=== PATIENT | male | born 1985 ===

== ENCOUNTER 2023-12-03 11:22 | Emergency (ER) | payer OTHER, SELFPAY ==
[2023-12-03 11:28] VITALS: BP 117/64; PULSE 91; RESP 20; TEMP 36.7; O2SAT 98
--- NOTE | 2023-12-03 12:02 | ED.URI ---
HPI - URI/Sore Throat General Chief Complaint: Upper Respiratory Infection Stated Complaint: upper respiratory Time Seen by Provider: 12/03/23 11:55 Source: patient and RN notes reviewed Mode of arrival: ambulatory Limitations: no limitations History of Present Illness HPI Narrative: Patient presents today with a 2 week history of productive cough that has been worsening since onset, rhinorrhea, nasal congestion. Denies fever, sore throat, shortness of breath. He has tried no medication for symptoms prior to arrival. No history of asthma or COPD. Smokes half pack per day. Related Data Home Medications Medication Instructions Recorded Confirmed quetiapine 100 mg tablet mg 12/03/23 Allergies Allergy/AdvReac Type Severity Reaction Status Date / Time NSAIDS (Non-Steroidal Allergy Rash Verified 12/03/23 12:02 Anti-Inflamma Review of Systems Review of Systems: CONSTITUTIONAL: Denies body aches, fever, chills, or sweats. EYES: Denies visual changes, redness, or discharge. ENT: Denies sore throat, or otalgia.+ rhinorrhea, congestion CARDIOVASCULAR: Denies chest pain, palpitations, or edema. RESPIRATORY: Denies dyspnea.+ cough GASTROINTESTINAL: Denies abdominal pain, nausea, vomiting, or diarrhea. GENITOURINARY: Denies dysuria or hematuria. SKIN: Denies rash, itching, or wounds. MUSCULOSKELETAL: Denies back pain, joint pain, or myalgia. NEUROLOGIC: Denies headache, numbness, tingling, or weakness. PSYCH: Denies depression or anxiety. PMFSH Comments At time of signature, I have reviewed and agree with nursing past medical, surgical, social and family history unless otherwise noted. Please see nursing chart for further information. There is no relevant family history pertinent to the presenting complaint Exam Narrative: GENERAL: Well-appearing, well-nourished, and in no acute distress. HEAD: Normocephalic, atraumatic. EYES: EOMI. No redness or drainage. Conjunctivae normal. ENT: Mucous membranes pink and moist. Nares clear. No rhinorrhea. TMs normal bilaterally. Throat normal. Uvula midline. NECK: Normal AROM. Supple. No lymphadenopathy. CHEST: No respiratory distress. Clear to auscultation. HEART: Regular rate and rhythm. No murmur appreciated. EXTREMITIES: Normal range of motion. No edema. SKIN: Warm, dry, no rash. Capillary refill normal. Normal skin turgor. NEURO: No focal deficits. Alert and oriented x3. Gait steady. PSYCH: Normal affect. No signs of depression or anxiety. Course Course Level of Care: Express Care Visit Vital Signs Vital signs: Vital Signs Temperature 98.0 F 12/03/23 11:28 Pulse Rate 91 12/03/23 11:28 Respiratory Rate 20 12/03/23 11:28 Blood Pressure 117/64 12/03/23 11:28 Pulse Oximetry 98 12/03/23 11:28 Oxygen Delivery Room Air 12/03/23 11:28 Temperature 98.0 F 12/03/23 11:28 Pulse Rate 91 12/03/23 11:28 Respiratory Rate 20 12/03/23 11:28 Blood Pressure 117/64 12/03/23 11:28 Pulse Oximetry 98 12/03/23 11:28 Oxygen Delivery Room Air 12/03/23 11:28 At time of signature, I have reviewed and agree with nursing past medical, surgical, social and family history unless otherwise noted. Please see nursing chart for further information. There is no relevant family history pertinent to the presenting complaint MDM - URI/Sore Throat MDM Narrative Medical decision making narrative: Patient will be treated with Augmentin and prednisone for his symptoms it is. Anticipatory guidance given. Differential Diagnosis Differential diagnosis: Likely upper respiratory infection, viral infection, bronchitis and other (Pneumonia) Critical Care Time Critical Care Time Critical Care Time: No Discharge Plan Discharge Clinical Impression: Bronchitis Sinusitis Qualifiers: Sinusitis location: unspecified location Chronicity: acute Recurrence: non-recurrent Qualified Code(s): J01.90 - Acute sinusitis, unspecified Isacc
== END 2023-12-03 12:13 | disposition home or self-care (01) ==
PROVIDERS: Emergency Provider Nurse Practitioner
DX: J40 Bronchitis, not specified as acute or chronic (principal); J01.90 Acute sinusitis, unspecified
CPT/HCPCS: 99203; G0463

== ENCOUNTER 2024-05-11 17:03 | Emergency (ER) | payer OTHER, SELFPAY ==
--- NOTE | ~2024-05-11 | XR_ITS ---
EXAMINATION: [id number] DATE: 05/11/2024 17:26 INDICATION: Left chest injury. TECHNIQUE: A frontal view of the chest and 2 views on 3 radiographs of the left ribs were obtained. COMPARISON: None. FINDINGS: There is no pneumonia, pleural effusion, or pneumothorax. The heart size is normal. There i s a fracture of left eighth rib. IMPRESSION: 1. Fracture of left eighth rib. Reviewed, dictated and finalized at location E.
[2024-05-11 17:08] VITALS: BP 125/62; PULSE 94; RESP 20; TEMP 36.8; O2SAT 100
--- NOTE | 2024-05-11 17:13 | ED.GENADULT ---
HPI - General Adult General Chief complaint: Unspecified Stated complaint: rib pain Source: patient Mode of arrival: ambulatory Limitations: no limitations History of Present Illness HPI narrative: 39 y/o male presented for c/o left rib pain x3-4 days. States several heavy metal objects fell onto his body from out of a truck causing him to fall to the ground. Pain is worse with coughing and deep breathing. Denies hemoptysis, sob, wheezing, dizziness or palpitations. Has been taking Tylenol and smoking a lot of pot for pain. Related Data Home Medications Medication Instructions Recorded Confirmed quetiapine 100 mg tablet 100 mg PO BID 12/03/23 05/11/24 Allergies Allergy/AdvReac Type Severity Reaction Status Date / Time NSAIDS (Non-Steroidal Allergy Intermediate Rash Verified 05/11/24 17:18 Anti-Inflamma Review of Systems Review of Systems: CONSTITUTIONAL: Denies body aches, fever, chills, or sweats. EYES: Denies visual changes, redness, or discharge. CARDIOVASCULAR: Denies chest pain, palpitations, or edema. RESPIRATORY: Denies cough or dyspnea. GASTROINTESTINAL: Denies abdominal pain, nausea, vomiting, or diarrhea. SKIN: Denies rash, itching, or wounds. MUSCULOSKELETAL: reports left rib pain Denies back pain, joint pain, or myalgia. All systems reviewed & are unremarkable except as noted in HPI and below PMFSH Past Medical History Medical History Paranoid schizophrenia Social History Social History (Updated 05/11/24 @ 17:33 by Maggi Ledbetter APRN) Smoking status: Current every day smoker Tobacco type: e-cigarettes/vaping Substance use type: marijuana Comments At time of signature, I have reviewed and agree with nursing past medical, surgical, social and family history unless otherwise noted. Please see nursing chart for further information. There is no relevant family history pertinent to the presenting complaint Exam Narrative: GENERAL: Well-appearing, and in no acute distress. HEAD: Normocephalic, atraumatic. NECK: Normal AROM. CHEST: No respiratory distress. Clear to auscultation. HEART: Regular rate and rhythm. No murmur appreciated. Normal peripheral pulses. ABDOMEN: Soft, nontender, nondistended MUSCULOSKELETAL: No bony tenderness; ribs nontender with palpation, but states 'it feels strange' no bruising, no apparent deformity. EXTREMITIES: Normal range of motion. SKIN: Warm, dry, no rash. Capillary refill normal. Normal skin turgor. NEURO: No focal deficits. Alert and oriented x3. Gait steady. PSYCH: Normal affect. Course Course Emergency Course: Patient is aware of diagnosis, understands and agrees to treatment plan. Anticipatory guidance given. Patient agrees to follow-up as directed and is aware of reasons to seek care at the emergency department. Portions of this record may have been created with voice recognition software Level of Care: Express Care Visit Vital Signs Vital signs: Vital Signs Temperature 98.2 F 05/11/24 17:08 Pulse Rate 94 05/11/24 17:08 Respiratory Rate 20 05/11/24 17:08 Blood Pressure 125/62 05/11/24 17:08 Pulse Oximetry 100 05/11/24 17:08 Oxygen Delivery Room Air 05/11/24 17:08 Temperature 98.2 F 05/11/24 17:08 Pulse Rate 94 05/11/24 17:08 Respiratory Rate 20 05/11/24 17:08 Blood Pressure 125/62 05/11/24 17:08 Pulse Oximetry 100 05/11/24 17:08 Oxygen Delivery Room Air 05/11/24 17:08 Medical Decision Making MDM Narrative Medical decision making narrative: results of x-ray reviewed with patient; 8th rib fx. Discussed physical exam findings. No concern for hemothorax, pneumothorax, or pulmonary contusion. Few tablets of Tramadol sent as pt cannot tolerate NSAIDs. Advised supportive measures and signs/symptoms to go to the ER. Pt is appropriate for outpt treatment and f/u. Differential Diagnosis Differential Diagnosis:
== END 2024-05-11 18:05 | disposition home or self-care (01) ==
PROVIDERS: Emergency Provider Nurse Practitioner Family; PCP Nurse Practitioner Family
DX: S22.32XA Fracture of one rib, left side, initial encounter for closed fracture (principal); W20.8XXA Other cause of strike by thrown, projected or falling object, initial encounter; F20.0 Paranoid schizophrenia; F17.290 Nicotine dependence, other tobacco product, uncomplicated; F12.90 Cannabis use, unspecified, uncomplicated
CPT/HCPCS: 71101; 99213; G0463

== ENCOUNTER 2024-05-24 17:17 | Emergency (ER) | payer OTHER, SELFPAY ==
[2024-05-24 17:22] VITALS: BP 137/87; PULSE 112; RESP 20; TEMP 37.3; O2SAT 98
--- NOTE | 2024-05-24 17:45 | ED.WOUNDLAC ---
HPI - Wound/Laceration General Chief Complaint: Wound/Laceration Stated Complaint: Left hand middle finger lac Time Seen by Provider: 05/24/24 17:36 Source: patient, RN notes reviewed and old records reviewed Mode of arrival: ambulatory Limitations: no limitations History of Present Illness HPI narrative: 39 year old male who presents to [facility] care with complaints of laceration to the left middle finger fat pad which occurred when he cut it on knife when doing dishes at home at 1700. Bleeding is controlled at this time. Patient reports that his tetanus is up to date. Patient is right hand dominant. Onset (ago): hour(s) (at 1700 today) Extremity Location: Left: hand (middle finger distal fat pad) Place: home Patient tetanus UTD: Yes Treatments prior to arrival: other (wet towel) Related Data Home Medications Medication Instructions Recorded Confirmed quetiapine 100 mg tablet 100 mg PO BID 12/03/23 05/24/24 buprenorphine 4 mg-naloxone 1 mg 1 film sublingual DAILY 05/24/24 05/24/24 sublingual film Allergies Allergy/AdvReac Type Severity Reaction Status Date / Time NSAIDS (Non-Steroidal Allergy Intermediate Rash Verified 05/24/24 17:40 Anti-Inflamma Review of Systems Review of Systems: CONSTITUTIONAL: Denies fever, chills, or sweats. CARDIOVASCULAR: Denies chest pain, palpitations, or edema. RESPIRATORY: Denies cough or dyspnea. SKIN: Reports laceration to the left middle finger tip on fat pad which occurred at 1700 today. MUSCULOSKELETAL: Denies musculoskeletal pain NEUROLOGIC: Denies numbness, or weakness. All systems reviewed & are unremarkable except as noted in HPI and below PMFSH Past Medical History Medical History (Updated 05/25/24 @ 23:11 by Eva Jacobs NP) Addiction on suboxone Fracture, rib Paranoid schizophrenia Social History Social History Smoking status: Current every day smoker Tobacco type: e-cigarettes/vaping Substance use type: marijuana Comments At time of signature, agree with nursing past medical, surgical, social and family history. There is no relevant family history pertinent to the presenting complaint Exam Narrative: GENERAL: Well-appearing, well-nourished, and in no acute distress. HEAD: Normocephalic, atraumatic. NECK: Supple. no lymphadenopathy CHEST: Clear to auscultation. No respiratory distress. HEART: Regular rate and rhythm. No murmur heard. Normal peripheral pulses. EXTREMITIES: Normal range of motion. No edema. SKIN: Warm, dry, no rash. Reports 1cm laceration to the distal fat pad of left 3rd finger, no acute active bleeding noted. NEURO: No focal deficits. Alert and oriented x3. Course Course Level of Care: Express Care Visit Vital Signs Vital signs: Vital Signs Temperature 37.3 C 05/24/24 17:22 Pulse Rate 112 H 05/24/24 17:22 Respiratory Rate 20 05/24/24 17:22 Blood Pressure 137/87 05/24/24 17:22 Pulse Oximetry 98 05/24/24 17:22 Oxygen Delivery Room Air 05/24/24 17:22 Temperature 37.3 C 05/24/24 17:22 Pulse Rate 112 H 05/24/24 17:22 Respiratory Rate 20 05/24/24 17:22 Blood Pressure 137/87 05/24/24 17:22 Pulse Oximetry 98 05/24/24 17:22 Oxygen Delivery Room Air 05/24/24 17:22 Procedures Laceration distal middle finger: Date: 05/24/24 Time: 17:50 Site: hand (distal middle finger fat pad area) Side (If applicable): left Size (cm): 1 Description: linear Depth: simple, single layer Local Anesthetic: lidocaine 1% Amount of anesthesia used (mL): 1 Pre-repair: wound explored and irrigated extensively ====== Skin Level ====== Skin layer closed with: nylon Size (cm): 3-0 Number of sutures: 4 Technique: simple, interrupted ====== Subcutaneous Layer ====== ====== Muscle Layer ====== ====== Tendon Layer ======
== END 2024-05-24 18:22 | disposition home or self-care (01) ==
PROVIDERS: Emergency Provider Registered Nurse; PCP Nurse Practitioner Family
DX: S61.213A Laceration without foreign body of left middle finger without damage to nail, initial encounter (principal); W26.0XXA Contact with knife, initial encounter; Y93.G1 Activity, food preparation and clean up; F17.290 Nicotine dependence, other tobacco product, uncomplicated; F12.90 Cannabis use, unspecified, uncomplicated; F20.0 Paranoid schizophrenia
CPT/HCPCS: 12001; 99213; G0463

== ENCOUNTER 2024-10-15 12:41 | Emergency (ER) | payer SELFPAY ==
--- NOTE | ~2024-10-15 | XR_ITS ---
EXAMINATION: XR chest 2V 10/15/2024 13:16 INDICATION: Cough and shortness of breath. PROCEDURE: 2 view chest COMPARISON: No prior studies for comparison. FINDINGS: The lungs are clear. The cardiomediastinal silhouette is within normal limits. There are no pleural effusions. There is no pneumothorax suspected. IMPRESSION: 1: NO ACUTE CARDIOPULMONARY DISEASE. Reviewed, dictated and finalized at location A. [employer]
[2024-10-15 12:54] VITALS: BP 144/81; PULSE 105; RESP 16; TEMP 36.1; O2SAT 99
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
== END 2024-10-15 13:30 | disposition home or self-care (01) ==
PROVIDERS: Emergency Provider Nurse Practitioner Family; PCP Nurse Practitioner Family
DX: L03.011 Cellulitis of right finger (principal); J06.9 Acute upper respiratory infection, unspecified; R05.9 Cough, unspecified; L84 Corns and callosities; F17.290 Nicotine dependence, other tobacco product, uncomplicated; F12.90 Cannabis use, unspecified, uncomplicated
CPT/HCPCS: 71046; 99213; G0463